=== PATIENT | male | born 1975 ===

== ENCOUNTER 2023-12-24 05:24 | Day surgery (SDC) | payer OTHER ==
[~2023-12-24 05:24] MED LIST: COLACE100 MG PO; NEURONTIN300 MG PO; TRAM1TAB98 PO
[2023-12-24] MEDS ORDERED: POVIDONE-IODINE 118 ML BOTT TOP ONE (06:49)
[2023-12-24] MEDS ORDERED: HEMOSTATIC MATRIX 1 KIT KIT TOP ONE (06:49)
[2023-12-24] MEDS ORDERED: BUPIVACAINE HCL/Mpf 0.5% 10ML VIAL ONE (06:49)
[2023-12-24] MEDS ORDERED: DIBUCAINE 30 GM TUBE ONE (06:49)
[2023-12-24] MEDS ORDERED: METRONIDAZOLE/SODIUM CHLORIDE 500 MG/100 ML PIGGYBACK IV ONE (06:50)
[2023-12-24] MEDS ORDERED: CEFTRIAXONE SODIUM 2,000 MG VIAL ONE (06:50)
[2023-12-24] MEDS ORDERED: LIDOCAINE HCL 1%/EPINEPHRINE 20ML VIAL IJ ONE (06:50)
[2023-12-24] MEDS ORDERED: TRAM1TAB98 PO (08:13)
[2023-12-24] MEDS ORDERED: COLACE100 MG PO (08:13)
== END 2023-12-24 13:20 | disposition home or self-care (01) ==
LOC: CIR.AMB 05:24
PROVIDERS: ATTEND Surgery
DX: K60.3 Anal fistula (principal)